=== PATIENT | female | born 1995 | race Caucasian/White ===

== ENCOUNTER → 2020-12-01 | Outpatient (REF) | LOC: WSOH 10:31 | DX: Z02.89 Encounter for other administrative examinations (principal) ==

== ENCOUNTER → 2021-05-04 | Outpatient (CLI) | payer MEDICAID ==
[~2021-05-04] MED LIST: IBU600 MG PO; PRENATAL LOWIRON PO
== END ==
LOC: ZCOL.LAB 10:12
DX: Z20.822 Contact with and (suspected) exposure to COVID-19 (principal)

== ENCOUNTER 2021-05-09 06:21 | Inpatient (IN) | payer MEDICAID ==
[~2021-05-09] VITALS: Ht 160 cm; Wt 54.5 kg
[2021-05-09] VITALS (38 sets, daily range): BP systolic 97–131; BP diastolic 53–83; PULSE 68–125; TEMP 97.6–98.4
--- NOTE | 2021-05-09 06:35 | NUR ---
PT ARRIVES AMBULATORY TO UNIT WITH SPOUSE, ASSISTED INTO GOWN AND ORIENTED TO LABOR ROOM, PLACED ON FHR/TOCO MONITORING, TRACING WELL, CATEGORY 1 BABY, DENIES CONTRACTIONS THIS MORNING, ANY LEAKING OF FLUIDS/BLOOD, AND REPORTS APPROPRIATE MOVEMENT. INT PLACED TO LEFT WRIST AND LABS OBTAINED. CONSENTS REVIEWED AND SIGNED. POC REVIEWED, DENIES FURTHER QUESTIONS OR CONCERNS. 0700: LR INFUSING. PITOCIN BEGINS INFUSING AT 2MU PER ORDER.
[2021-05-09 07:33] LABS: BASO % 0.1 % (0.0-2.0); EOS # 0.1 (0.0-0.7); EOS % 0.5 % (0-4.0); GRAN # 6.6 (1.4-6.5); HEMOGLOBIN 11.9 g/dl (12.5-16.0); LYMPH # 2.4 (1.2-3.4); LYMPH % 25.4 % (20.0-51.0); MEAN CELL VOLUME 90 fl (80.0-100.0); MEAN CORPUSCULAR HEMOGLOBIN 30 pg (27.0-31.0); MEAN CORPUSCULAR HGB CONC 33 g/dl (33.0-37.0); MEAN PLATELET VOLUME 10.6 fl (7.4-10.4); MONO # 0.4 (0.1-0.6); MONO % 4.5 % (1.7-9.3); PLATELET COUNT 325 K/mm3 (130-400); RED BLOOD COUNT 3.96 M/mm3 (4.10-5.30); REDCELL DISTRIBUTION WIDTH-CV 13.8 % (11.5-14.5)
[2021-05-09 07:35] LABS: HEMATOCRIT 35.8 % (37.0-47.0)
[2021-05-09] MEDS ORDERED: PRENATAL LOWIRON PO (07:39)
--- NOTE | 2021-05-09 08:35 | NUR ---
ROLES AT BEDSIDE, DISCUSSING PLAN OF CARE, REVIEWS FHR STRIP, SVE /-1, NO NEW ORDERS AT THIS TIME, CONTINUE WITH INDUCTION OF LABOR PER EXISTING ORDERS
--- NOTE | 2021-05-09 10:19 | NUR ---
Roles on unit. Reviews FHR strip. Updated pt reported increased pressure. SVE per this RN unobtainable to due posterior postiion and maternal pain tolerance. Orders to continue expectant management of labor.
--- NOTE | 2021-05-09 12:40 | NUR ---
PT C/O CONTRACTIONS BEING "RIGHT ON TOP OF EACH OTHER," WITH LITTLE BREAK TO CATCH HER BREATH, THIS NURSE PALPATES CONTRACTIONS Q1MIN APART, PT HAS BEEN UP AND DOWN ON BIRTHING BALL AND AMBULATING AROUND ROOM TO HELP WITH COMFORT, DIFFICULTY TRACING TOCO, PITOCIN DECREASED TO 10MU 1245: SVE /+1, BLOODY SHOW OBSERVED
--- NOTE | 2021-05-09 14:15 | NUR ---
Pt up to squat bar. Increasing pressure with each contraction. 1416-SROM of clear fluid. SVE per this RN. Roles requested to unit. 1425-Pt with increasing pressure. SVE per this RN /+1. Roles updated on SVE. Provider on route to unit. 1426-DrJonatan Roles at bedside. Attempt at AROM for forebag. No fluid noted with attempt. Pt requesting epidural. Ines Duenas CRNA notified and requested to unit. LR bolus infusing. Pt to edge of bed.
--- NOTE | 2021-05-09 14:30 | NUR ---
1435 :PT REQUESTING SVE PRIOR TO EPIDURAL, C/O WORSENING PRESSURE AND URGE TO PUSH, SVE 9-10/100/+2, REQUESTED AT BEDSIDE, SVE COMPLETE, ROOM AND PT PREPPED TO BEGIN PUSHING PER PROTOCOL 1440: PT BEGINS PUSHING 1445: OF HEAD BY 1445: OF VIABLE FEMALE BY , PLACED ON MATERNAL ABDOMEN. CORD CLAMPED X2, CUT BY FOB. 1454: OF PLACENTA BY . PITOCIN BOLUS ADMINISTERED IMMEDIATELY FOLLOWING. FUNDUS FIRM AT UMBILICUS. LOCHIA WNL. PERINEUM REMAINS INTACT FOLLOWING DELIVERY.
--- NOTE | 2021-05-09 16:45 | NUR ---
1644: FUNDUS FIRM, LOCHIA SCANT WITH NO CLOTS, PT REQUESTING TO USE RESTROOM, ASSISTED TO EDGE OF BED, DENIES DIZZINESS, AMBULATORY WITH STRONG STEADY GAIT TO RESTROOM, LARGE UNMEASURED VOID AT THIS TIME, PT EDUCATED ABOUT MEASURING THE NEXT 3 VOIDS PRIOR TO REMOVING THE HAT, DENIES FURTHER QUESTIONS OR CONCERNS AT THIS TIME, MINIMAL CRAMPING BUT REPORTS RELIEF FROM PO MOTRIN 1654: PT AMBULATORY TO ROOM, STRONG STEADY GAIT, SCANT BLEEDING, DENIES FEELING DIZZY OR LIGHT HEADED, VITAL SIGNS REMAIN STABLE, ORIENTED TO ROOM, SUPPER TRAY PROVIDED, PT SMILING AND CONTINUES TO DENY PAIN OR QUESTIONS AT THIS TIME
[2021-05-10 00:15] VITALS: BP 118/83; PULSE 80; TEMP 97.3
[2021-05-10 05:00] VITALS: BP 107/72; PULSE 85; TEMP 99
[2021-05-10 08:31] VITALS: BP 109/70; PULSE 84; TEMP 97.4
[2021-05-10] MEDS ORDERED: IBU600 MG PO (09:44)
[2021-05-10 10:59] VITALS: BP 121/83; PULSE 80; TEMP 98.2
== END 2021-05-10 16:15 | disposition home or self-care (01) | DRG 807 ==
LOC: OB 06:21 → LDR 06:21 → OB 06:28
PROVIDERS: ADMIT Obstetrics & Gynecology
PROC: 10E0XZZ Delivery of Products of Conception, External Approach (ICD-10-PCS; principal; 2021-05-09)
DX: O41.03X0 Oligohydramnios, third trimester, not applicable or unspecified (principal); Z37.0 Single live birth; Z3A.39 39 weeks gestation of pregnancy
CPT/HCPCS: J2590; J7120

== ENCOUNTER → 2022-01-17 | Outpatient (CLI) | payer MEDICAID | LOC: COL.RAD 12:18 | DX: R10.2 Pelvic and perineal pain (principal); Z97.5 Presence of (intrauterine) contraceptive device ==

== ENCOUNTER 2022-03-01 09:37 | Day surgery (SDC) | payer MEDICAID ==
[~2022-03-01] VITALS: Ht 160 cm; Wt 48.6 kg
[2022-03-01] VITALS (7 sets, daily range): BP systolic 96–113; BP diastolic 52–72; PULSE 66–80; TEMP 97.4
[2022-03-01 10:34] LABS: COLLECTION METHOD CLEAN CATCH
[2022-03-01 10:37] LABS: BASO % 0.1 % (0.0-2.0); EOS # 0.1 K/mm3 (0.0-0.7); EOS % 0.9 % (0.0-4.0); GRAN # 4.5 K/mm3 (1.4-6.5); GRAN % 66.2 % (42.2-75.2); HEMATOCRIT 39.1 % (37.0-47.0); LYMPH # 1.8 K/mm3 (1.2-3.4); LYMPH % 26.4 % (20.0-51.0); MEAN CELL VOLUME 92 fl (80.0-100.0); MEAN CORPUSCULAR HEMOGLOBIN 31 pg (27-31); MEAN CORPUSCULAR HGB CONC 33 g/dl (33.0-37.0); MEAN PLATELET VOLUME 9.3 fl (7.4-10.4); MONO # 0.4 K/mm3 (0.1-0.6); MONO % 6.1 % (1.7-9.3); PLATELET COUNT 418 K/mm3 (130-400); RED BLOOD COUNT 4.26 M/mm3 (4.10-5.30); REDCELL DISTRIBUTION WIDTH-CV 13.9 % (11.5-14.5)
[2022-03-01 10:43] LABS: PH 7 (5-8); SQUAMOUS EPITHELIAL 0-2 /hpf (0-10); URINE APPEARANCE Clear (CLEAR/HAZY); URINE BACTERIA Rare /hpf (NONE SEEN); URINE BILIRUBIN Negative (NEGATIVE); URINE BLOOD 1+ (NEGATIVE); URINE COLOR Straw (YELLOW); URINE GLUCOSE Negative (NEGATIVE); URINE KETONE Negative (NEGATIVE); URINE LEUKOCYTE ESTERASE Negative (NEGATIVE); URINE NITRATE Negative (NEGATIVE); URINE PROTEIN(semi-quant) Negative (NEGATIVE); URINE RBC 0-2 /hpf (0-2); URINE UROBILINOGEN Negative (NEGATIVE)
[2022-03-01 10:56] LABS: ALBUMIN 4.4 gm/dL (3.5-5.0); BILIRUBIN,TOTAL 0.6 mg/dL (0.2-1.2); C-REACTIVE PROTEIN 0.05 mg/dL (0.00-0.50); CALCIUM 9.3 mg/dL (8.4-10.2); CREATININE, serum 0.6 mg/dL (0.57-1.11); POTASSIUM 3.9 mmol/L (3.5-4.5); TOTAL PROTEIN 7.8 gm/dL (6.2-8.1)
--- NOTE | 2022-03-01 13:08 | NUR ---
The patient ambulated onto the unit escorted by LUDWIG Moses from the Emergency Department. The patient appeared to tolerate the activity well. The patient appears alert and oriented at this time. The patient asked to use the bathroom and was assisted across the herzog. The patient has a gown in place and was instructed that she would have to take off her pants prior to OR and she verbalized understanding. Consent signed. Admission completed. Warm blankets provided. Call light within reach. The patient denies any further needs at this time.
[2022-03-01] MEDS ORDERED: SYNTHROID0.075 MG/T PO (13:21)
[2022-03-01] MEDS ORDERED: CLARITIN REDITAB5 MG PO (13:22)
[2022-03-01] MEDS ORDERED: IBU600 MG PO (16:17)
[2022-03-01] MEDS ORDERED: ROXICODONE 55 MG/TAB PO (16:18)
--- NOTE | 2022-03-01 17:00 | NUR ---
Patient returns to room 7 per cart from PACU accompanied by Susannah RN and is awake and alert. IV fluids infusing. Bandaids x3 on abdomen clean and dry. Denies pain or nausea at this time. Requests jello and juice and given. Call light in reach and siderails up x2.
--- NOTE | 2022-03-01 17:15 | NUR ---
Sipping on juice and eating jello.
--- NOTE | 2022-03-01 17:30 | NUR ---
Becomes nauseated. Cool cloth on forehead. Encouraged to rest and not take anymore my mouth.
--- NOTE | 2022-03-01 17:45 | NUR ---
Has emesis of 75cc's bile colored emesis and states feels better. Allowed to rest and will continue to monitor.
--- NOTE | 2022-03-01 18:00 | NUR ---
No further complaints of nausea or pain. Has been resting with eyes closed when not disturbed.
--- NOTE | 2022-03-01 18:30 | NUR ---
Patient resting with eyes closed.
--- NOTE | 2022-03-01 18:45 | NUR ---
Patient awake and assisted up to the bathroom. Gait steady. Voids and returns to room. IV to INT. Patient dressing. Ride notified.
--- NOTE | 2022-03-01 19:00 | NUR ---
Dressed and ready for discharge. Has intermittent nausea. Sent home with crackers, Sprite, and popsciles. Encouraged to rest at home.
--- NOTE | 2022-03-01 19:11 | NUR ---
Patient dismissed to home driven by spouse per private vehicle and assisted into car by this RN with dismissal instructions in hand.
== END 2022-03-01 19:11 | disposition home or self-care (01) ==
LOC: COL.ER 09:37 → SDCO 12:59
PROVIDERS: Emergency Medicine
DX: T83.32XA Displacement of intrauterine contraceptive device, initial encounter (principal); R10.2 Pelvic and perineal pain; R10.9 Unspecified abdominal pain; Z20.822 Contact with and (suspected) exposure to COVID-19; Z87.891 Personal history of nicotine dependence
CPT/HCPCS: J0692; J1100; J1170; J1885; J2405; J2704; J3010; J7120; Q9967